=== PATIENT | female | born 1990 | race Hispanic/Latino ===

== ENCOUNTER 2022-02-24 02:17 | Day surgery (SDC) | payer BC, OTHER ==
[2022-02-24 02:44] VITALS: BMI 37.3
[2022-02-24] MEDS ORDERED: hydrALAZINE 20 MG/ML VIAL SLOW IVP PRN (06:15)
== END 2022-02-24 05:25 | disposition home or self-care (01) ==
LOC: CSHLD/OP 02:17
PROVIDERS: ATTEND Family Medicine
DX: O47.1 False labor at or after 37 completed weeks of gestation (principal); O99.343 Other mental disorders complicating pregnancy, third trimester; F32.A Depression, unspecified; Z3A.39 39 weeks gestation of pregnancy; Z79.899 Other long term (current) drug therapy
CPT/HCPCS: 99283

== ENCOUNTER 2022-02-26 08:11 | Inpatient (IN) | payer BC, OTHER ==
[2022-02-26] MEDS: Lactated Ringer's 1,000 ML IV SCH ×2 (08:41→22:30)
[2022-02-26] MEDS ORDERED: Ondansetron PF 4 MG/2 ML Vial IVP PRN ×2 (08:47→11:34)
[2022-02-26] MEDS ORDERED: Diphenoxylate HCl/Atropine Tablet PO PRN (08:47)
[2022-02-26] MEDS ORDERED: Ibuprofen 800 MG TAB PO PRN (08:47)
[2022-02-26] MEDS ORDERED: Misoprostol 200 MCG TAB PR PRN (08:47)
[2022-02-26] MEDS ORDERED: Methylergonovine 0.2 MG/ML VIAL IM PRN (08:47)
[2022-02-26] MEDS ORDERED: hydrALAZINE 20 MG/ML VIAL SLOW IVP PRN (08:47)
[2022-02-26] MEDS ORDERED: Acetaminophen 500 MG TAB PO PRN (08:47)
[2022-02-26] MEDS ORDERED: Lidocaine 1% (PF) 30 ML VIAL SC PRN (08:47)
[2022-02-26] MEDS ORDERED: Promethazine HCl 25 MG/ML VIAL IM PRN ×2 (08:47→11:34)
[2022-02-26] MEDS ORDERED: HYDROcodone/Acetaminophen 5/325 mg Tablet PO PRN (08:47)
[2022-02-26] MEDS ORDERED: Butorphanol Tartrate 1 MG/ML VIAL SLOW IVP PRN (08:47)
[2022-02-26] MEDS ORDERED: Carboprost 250 MCG/ML AMP IM PRN (08:47)
[2022-02-26 08:56] VITALS: BMI 38.0
[2022-02-26] MEDS ORDERED: NS w/ Oxytocin 30 units 500 ML IV SCH ×2 (09:00→14:15)
[2022-02-26] MEDS ORDERED: Fentanyl 2 mcg/Bup 0.1% Cadd 100 ML ONE (09:07)
[2022-02-26 09:09] LABS: Hemoglobin 10.7 g/dL (12.0-15.5); Mean Corpuscular HGB CONC 33.8 g/dL (32.0-36.0); Mean Corpuscular Hemoglobin 27.9 pg (27.0-33.0); Mean Corpuscular Volume 82.8 fl (81.6-98.3); Mean Platelet Volume 12.4 fl (7.4-10.4); Platelet Count 182 10x3/uL (150-450); RBC Distribution Width 14.8 % (11.5-14.5); Red Blood Cell (RBC) Count 3.83 10x6/uL (3.90-5.03); White Blood Cell (WBC) Count 20.8 10x3/uL (3.5-10.5)
[2022-02-26 09:46] LABS: Syphilis Antibody Nonreactive (Nonreactive); Syphilis Antibody Index 0.09 S/CO (<1.00 Non-Reactive)
[2022-02-26 09:48] LABS: HBSAg Index 0.22 S/CO (0-0.99); Hep B Surf Ag Non-Reactive S/CO (NonReactive)
[2022-02-26 11:04] LABS: SARS-CoV-2 NAA Rapid Test Not Detected (NotDetected)
[2022-02-26] MEDS ORDERED: ePHEDrine Sulfate 50 MG/10 ML VIAL SLOW IVP PRN (11:34)
[2022-02-26] MEDS ORDERED: Moisturizing Cream (Eucerin) 113 GM JAR TOP PRN (11:34)
[2022-02-26] MEDS ORDERED: Acetaminophen 325 MG TAB PO PRN (11:34)
[2022-02-26] MEDS ORDERED: Naloxone HCl 0.4 mg/ml Vial IVP PRN ×2 (11:34)
[2022-02-26] MEDS ORDERED: diphenhydrAMINE 50 MG/ML VIAL IVP PRN (11:34)
[2022-02-26] MEDS ORDERED: Fentanyl 2 mcg/Bupivacaine 0.1% Cassette 100 ML EPIDURAL SCH (11:45)
[2022-02-26] MEDS ORDERED: Communication Order-Pharmacy FS SCH (11:45)
[2022-02-26] MEDS ORDERED: Lactated Ringer's 500 ML IV PRN (11:55)
[2022-02-27] MEDS ORDERED: Lanolin Ointment 7 GM TUBE TOP PRN (01:44)
[2022-02-27] MEDS ORDERED: Milk Of Magnesia 30 ML UDCUP PO PRN (01:44)
[2022-02-27] MEDS ORDERED: Bisacodyl 10 MG SUPP PR PRN (01:44)
[2022-02-27] MEDS ORDERED: Boostrix 0.5 ML (Tdap) VIAL (>/=7 yrs of age) IM ONE (01:44)
[2022-02-27] MEDS ORDERED: diphenhydrAMINE 25 MG CAP PO PRN (01:44)
[2022-02-27] MEDS ORDERED: Ondansetron PF 4 MG/2 ML Vial IVP PRN (01:44)
[2022-02-27] MEDS ORDERED: Benzocaine-Menthol 82.5 ML CAN TOP PRN (01:44)
[2022-02-27] MEDS ORDERED: hydrALAZINE 20 MG/ML VIAL SLOW IVP PRN (01:44)
[2022-02-27] MEDS: HYDROcodone/Acetaminophen 5/325 mg Tablet PO PRN ×4 (02:12→22:07)
[2022-02-27 07:06] LABS: Hemoglobin 7.8 g/dL (12.0-15.5); Mean Corpuscular HGB CONC 34.4 g/dL (32.0-36.0); Mean Corpuscular Hemoglobin 28.2 pg (27.0-33.0); Mean Corpuscular Volume 81.9 fl (81.6-98.3); Mean Platelet Volume 12.3 fl (7.4-10.4); Platelet Count 145 10x3/uL (150-450); Red Blood Cell (RBC) Count 2.77 10x6/uL (3.90-5.03); White Blood Cell (WBC) Count 18.4 10x3/uL (3.5-10.5)
[2022-02-27] MEDS ORDERED: Lactated Ringer's 1,000 ML IV SCH (08:15)
[2022-02-27] MEDS: Ibuprofen 800 MG TAB PO SCH ×3 (08:34→22:09)
[2022-02-27] MEDS: Ferrous Sulfate 325 MG TAB PO SCH ×2 (08:35→17:15)
[2022-02-27] MEDS: Prenatal Vitamin 1 TAB PO SCH (08:35)
[2022-02-27] MEDS: Docusate 100 MG CAP PO SCH ×2 (08:35→22:04)
[2022-02-27] MEDS: Lactated Ringer's 1,000 ML IV SCH ×2 (13:41→13:43)
[2022-02-27 17:43] LABS: Hemoglobin 9.1 g/dL (12.0-15.5); Mean Corpuscular HGB CONC 33.8 g/dL (32.0-36.0); Mean Corpuscular Hemoglobin 28.4 pg (27.0-33.0); Mean Corpuscular Volume 84.1 fl (81.6-98.3); Mean Platelet Volume 12.1 fl (7.4-10.4); Platelet Count 157 10x3/uL (150-450); White Blood Cell (WBC) Count 16.8 10x3/uL (3.5-10.5)
[2022-02-28] MEDS: Ibuprofen 800 MG TAB PO SCH ×3 (05:28→22:48)
[2022-02-28] MEDS: Docusate 100 MG CAP PO SCH ×2 (08:59→22:48)
[2022-02-28] MEDS: Prenatal Vitamin 1 TAB PO SCH (08:59)
[2022-02-28] MEDS: Ferrous Sulfate 325 MG TAB PO SCH ×2 (08:59→17:00)
[2022-02-28] MEDS: HYDROcodone/Acetaminophen 5/325 mg Tablet PO PRN (14:51)
[2022-03-01] MEDS: Ibuprofen 800 MG TAB PO SCH ×2 (05:24→14:13)
[2022-03-01 08:30] VITALS: BP 108/60; TEMP 98.5
[2022-03-01] MEDS: Prenatal Vitamin 1 TAB PO SCH (08:42)
[2022-03-01] MEDS: Ferrous Sulfate 325 MG TAB PO SCH (08:42)
[2022-03-01] MEDS: Docusate 100 MG CAP PO SCH (08:42)
== END 2022-03-01 17:34 | disposition home or self-care (01) | DRG 806 ==
LOC: CSHLD/OP 08:11 → CSHLD 08:57 → CSHPP 02-27 12:51
PROVIDERS: ADMIT Family Medicine; ATTEND Family Medicine
PROC: 10D07Z6 Extraction of Products of Conception, Vacuum, Via Natural or Artificial Opening (ICD-10-PCS; principal; 2022-02-26)
PROC: 10907ZC Drainage of Amniotic Fluid, Therapeutic from Products of Conception, Via Natural or Artificial Opening (ICD-10-PCS; 2022-02-26)
PROC: 0W8NXZZ Division of Female Perineum, External Approach (ICD-10-PCS; 2022-02-26)
PROC: 0UQG7ZZ Repair Vagina, Via Natural or Artificial Opening (ICD-10-PCS; 2022-02-26)
PROC: 30233N1 Transfusion of Nonautologous Red Blood Cells into Peripheral Vein, Percutaneous Approach (ICD-10-PCS; 2022-02-26)
PROC: 30233K1 Transfusion of Nonautologous Frozen Plasma into Peripheral Vein, Percutaneous Approach (ICD-10-PCS; 2022-02-27)
DX: O76 Abnormality in fetal heart rate and rhythm complicating labor and delivery (principal); O71.4 Obstetric high vaginal laceration alone; Z37.0 Single live birth; Z3A.39 39 weeks gestation of pregnancy; Z20.822 Contact with and (suspected) exposure to COVID-19; O69.2XX0 Labor and delivery complicated by other cord entanglement, with compression, not applicable or unspecified
CPT/HCPCS: 36415; 36430; 51702; 85027; 86780; 86850; 86900; 86901; 87340; 99285; J7120; P9016; P9059; U0002